=== PATIENT | female | born 1930 | race Caucasian/White ===

== ENCOUNTER 2016-09-11 05:05 | Emergency (ER) | payer MEDICARE, BC ==
[2005-02-19 17:27] VITALS: BP 143/71
[~2016-09-11] VITALS: Ht 172.7 cm; Wt 61.4 kg
[~2016-09-11 05:05] MED LIST: ALDACTONE 25MG25 M1 PO; ALDACTONE 25MG25 MG PO; ANTIVERT 12.512.5 MG PO; ANTIVERT 25MG25 MG PO; ASPIRIN 32325 MG/TA1 PO; ASPIRIN 81M81 MG/TA2 PO; BENADRYL PO; CALCIUM1 CAP PO; CALTRATE 600 +1 TAB PO; CENTRUM1 TAB PO; CEPHALEXIN500 M1 PO; CLOPIDOGREL PO; CORDARONE200 MG/TAB PO; COZAAR 25MG25 MG/TAB PO; DIAZIDE PO; DIOVAN80 M1 PO; DYAZIDE 25 MG-31 CAP PO; ELIQUIS 5MG PO; EXELON PAT4.6 MG/24 TD; EXELON13.3TDM; FISH OIL CONC1000 MG PO; FISH OIL500 MG PO; GRX VITAMIN E1000 IU TP; KLOR-CON 1010 MEQ PO; LEVAQUIN 5500 MG/TA1 PO; LEVOTHYROXINE PO; LIPITOR 10MG10 MG PO; MILK OF MAGNESI30 M1 PO; MULTAQ400 MG PO; MULTIPLE VITAMI1 CAP PO; MULTIPLE VITAMI1 TA1 PO; NEURONTIN100 MG/CAP; NORCO 325 MG-51 TAB PO; OSCAL 500 TAB500 MG PO; PEPCID COMPLETE1 CTB PO; POTASSIUM CH2 MEQ/ML PO; POTASSIUM CHLO10 ME2 PO; PROZAC 20MG20 MG PO; SYNTHROID0.088 MG/T PO; TESSALON P100 MG/CAP PO; TOPROL XL25 MG PO; TYLENOL 325MG325 MG PO; TYLENOL 500MG500 MG PO; VITAMIN C500 MG PO; ZOFRAN 4MG T4 MG/TAB PO
[2016-09-11 05:08] VITALS: TEMP 97.2
[2016-09-11] MEDS ORDERED: NORCO 325 MG-51 TAB PO (05:55)
[2016-09-11 06:15] VITALS: BP 167/68; PULSE 51
[2016-09-12] MEDS ORDERED: SYNTHROID0.075 MG/T PO (15:54)
[2016-09-12] MEDS ORDERED: ASPIRIN 81M81 MG/TA2 PO (15:55)
[2016-09-12] MEDS ORDERED: TOPROL XL 25MG25 MG PO (15:57)
[2016-09-12] MEDS ORDERED: ANTIVERT 12.512.5 MG PO (16:09)
== END 2016-09-11 06:15 | disposition home or self-care (01) ==
LOC: COL.ER 05:05
DX: S30.0XXA Contusion of lower back and pelvis, initial encounter (principal); I48.2 Chronic atrial fibrillation; W18.09XA Striking against other object with subsequent fall, initial encounter; I10 Essential (primary) hypertension

== ENCOUNTER 2016-09-12 15:05 | Emergency (ER) | payer MEDICARE, BC ==
[2005-02-19 17:27] VITALS: BP 143/71
[~2016-09-12] VITALS: Ht 170.2 cm; Wt 63.6 kg
[2016-09-12 15:09] VITALS: TEMP 97.8
[2016-09-12 15:49] LABS: BASO % 0.7 % (0.0-2.0); EOS % 0.7 % (0-4.0); GRAN # 4.2 (1.4-6.5); GRAN % 74.1 % (42.2-75.2); LYMPH # 0.7 (1.2-3.4); LYMPH % 11.8 % (20.0-51.0); MEAN CELL VOLUME 85 fl (80.0-100.0); MEAN CORPUSCULAR HGB CONC 32 g/dl (33.0-37.0); MEAN PLATELET VOLUME 9.7 fl (7.4-10.4); MONO # 0.7 (0.1-0.6); MONO % 12.3 % (1.7-9.3); PLATELET COUNT 152 K/mm3 (130-400); RED BLOOD COUNT 3.87 M/mm3 (4.10-5.30); REDCELL DISTRIBUTION WIDTH-CV 16.5 % (11.5-14.5); WHITE BLOOD COUNT 5.7 K/mm3 (4.8-10.8)
[2016-09-12 15:54] LABS: HEMATOCRIT 32.9 % (37.0-47.0); HEMOGLOBIN 10.6 g/dl (12.5-16.0); MEAN CORPUSCULAR HEMOGLOBIN 27 pg (27.0-31.0)
[2016-09-12] MEDS ORDERED: SYNTHROID0.075 MG/T PO (15:54)
[2016-09-12] MEDS ORDERED: ASPIRIN 81M81 MG/TA2 PO (15:55)
[2016-09-12] MEDS ORDERED: TOPROL XL 25MG25 MG PO (15:57)
[2016-09-12 16:02] LABS: ADJUSTED CALCIUM 9.8 mg/dL (8.4-10.2); ALBUMIN 3.5 gm/dL (3.5-5.0); C-REACTIVE PROTEIN 1.7 mg/dL (0.0-0.9); CALCIUM 9.4 mg/dL (8.4-10.2); CREATININE, serum 1.02 mg/dL (0.52-1.25); TOTAL PROTEIN 6.1 gm/dL (6.4-8.2)
[2016-09-12] MEDS ORDERED: ANTIVERT 12.512.5 MG PO (16:09)
[2016-09-12 16:13] LABS: PARTIAL THROMBOPLASTIN TIME 28.9 SECONDS (26.0-37.0)
[2016-09-12 16:14] LABS: INR 1.6 (0.8-3.0); PROTHROMBIN TIME 18.1 SECONDS (9.7-12.8)
[2016-09-12 17:49] LABS: PH 5 (5-8); URINE APPEARANCE Clear; URINE BACTERIA None Seen /hpf; URINE BILIRUBIN Negative (NEGATIVE); URINE BLOOD Negative (NEGATIVE); URINE COLOR Yellow; URINE GLUCOSE Negative (NEGATIVE); URINE KETONE 1+ (NEGATIVE); URINE RBC 0-2 /hpf; URINE UROBILINOGEN Negative (NEGATIVE)
[2016-09-12 18:21] VITALS: BP 169/66; PULSE 59
== END 2016-09-12 18:25 | disposition home or self-care (01) ==
LOC: COL.ER 15:05
PROVIDERS: Emergency Medicine
DX: S34.109A Unspecified injury to unspecified level of lumbar spinal cord, initial encounter (principal); W18.39XA Other fall on same level, initial encounter; Z91.81 History of falling; Y92.198 Other place in other specified residential institution as the place of occurrence of the external cause; I25.10 Atherosclerotic heart disease of native coronary artery without angina pectoris; I10 Essential (primary) hypertension; I48.91 Unspecified atrial fibrillation
CPT/HCPCS: J2270; J2405; J7030

== ENCOUNTER → 2016-09-22 | Outpatient (CLI) | payer MEDICARE, BC ==
[~2016-09-22] MED LIST changes: +ALMACONE 360 M360 ML PO; +AMOXICILLIN 50500 MG PO; +B-121000 MCG PO; +DEBROX OT; +DESYREL 50MG50 MG PO; +EXELON13.3TDM TD; +HALDOL .5M0.5 MG/TAB PO; +HALDOL 1MG T1 MG/TAB PO; +LEVAQUIN 750MG750 M1 PO; +MILK OF MA400 MG/52 PO; +NEURONTIN100 MG/CAP PO; +NORVASC 5MG5 MG/TAB PO; +PHENERGAN25 MG RC; +SEROQUEL 2525 MG/TAB PO; +SYNTHROID0.075 MG/T PO; +TOPROL XL 25MG25 MG PO
[2016-09-22 15:54] LABS: BASO # 0.1 (0.0-0.2); BASO % 0.8 % (0.0-2.0); EOS # 0.1 (0.0-0.7); EOS % 1.2 % (0-4.0); GRAN # 4.2 (1.4-6.5); GRAN % 70.9 % (42.2-75.2); HEMATOCRIT 37.6 % (37.0-47.0); HEMOGLOBIN 11.9 g/dl (12.5-16.0); LYMPH # 1.1 (1.2-3.4); LYMPH % 18.5 % (20.0-51.0); MEAN CELL VOLUME 87 fl (80.0-100.0); MEAN CORPUSCULAR HEMOGLOBIN 28 pg (27.0-31.0); MEAN CORPUSCULAR HGB CONC 32 g/dl (33.0-37.0); MEAN PLATELET VOLUME 9.9 fl (7.4-10.4); MONO # 0.5 (0.1-0.6); MONO % 8.3 % (1.7-9.3); PLATELET COUNT 241 K/mm3 (130-400); RED BLOOD COUNT 4.31 M/mm3 (4.10-5.30); REDCELL DISTRIBUTION WIDTH-CV 17.5 % (11.5-14.5); WHITE BLOOD COUNT 5.9 K/mm3 (4.8-10.8)
[2016-09-22 16:23] LABS: CALCIUM 9.7 mg/dL (8.4-10.2); CREATININE, serum 1.13 mg/dL (0.52-1.25); POTASSIUM 4.7 mmol/L (3.4-5.0)
== END ==
LOC: ZLAB.STJ 15:02
PROVIDERS: Internal Medicine Nephrology
DX: N18.2 Chronic kidney disease, stage 2 (mild) (principal)

== ENCOUNTER 2016-10-29 08:34 | Emergency (ER) | payer MEDICARE, BC ==
[2005-02-19 17:27] VITALS: BP 143/71
[~2016-10-29] VITALS: Ht 170.2 cm; Wt 59.1 kg
[~2016-10-29 08:34] MED LIST changes: -ALMACONE 360 M360 ML PO; -AMOXICILLIN 50500 MG PO; -B-121000 MCG PO; -DEBROX OT; -DESYREL 50MG50 MG PO; -EXELON13.3TDM TD; -HALDOL .5M0.5 MG/TAB PO; -HALDOL 1MG T1 MG/TAB PO; -LEVAQUIN 750MG750 M1 PO; -MILK OF MA400 MG/52 PO; -NEURONTIN100 MG/CAP PO; -NORVASC 5MG5 MG/TAB PO; -PHENERGAN25 MG RC; -SEROQUEL 2525 MG/TAB PO
[2016-10-29 08:38] VITALS: TEMP 97.7
[2016-10-29] MEDS ORDERED: EXELON13.3TDM TD (09:03)
[2016-10-29] MEDS ORDERED: NEURONTIN100 MG/CAP PO ×2 (09:04→09:10)
[2016-10-29] MEDS ORDERED: TYLENOL 325MG325 MG PO ×2 (09:08→09:10)
[2016-10-29] MEDS ORDERED: MILK OF MA400 MG/52 PO (09:11)
[2016-10-29] MEDS ORDERED: AMOXICILLIN 50500 MG PO (09:12)
[2016-10-29] MEDS ORDERED: HALDOL 1MG T1 MG/TAB PO (09:12)
[2016-10-29 10:13] LABS: BASO % 0.6 % (0.0-2.0); EOS % 0.4 % (0-4.0); GRAN # 5.2 (1.4-6.5); GRAN % 76.2 % (42.2-75.2); HEMATOCRIT 44.6 % (37.0-47.0); HEMOGLOBIN 14.3 g/dl (12.5-16.0); LYMPH % 14.8 % (20.0-51.0); MEAN CELL VOLUME 85 fl (80.0-100.0); MEAN CORPUSCULAR HEMOGLOBIN 27 pg (27.0-31.0); MEAN CORPUSCULAR HGB CONC 32 g/dl (33.0-37.0); MEAN PLATELET VOLUME 9.8 fl (7.4-10.4); MONO # 0.5 (0.1-0.6); MONO % 7.9 % (1.7-9.3); PLATELET COUNT 159 K/mm3 (130-400); RED BLOOD COUNT 5.23 M/mm3 (4.10-5.30); REDCELL DISTRIBUTION WIDTH-CV 16.3 % (11.5-14.5); WHITE BLOOD COUNT 6.8 K/mm3 (4.8-10.8)
[2016-10-29 10:22] LABS: ADJUSTED CALCIUM 9.5 mg/dL (8.4-10.2); ALBUMIN 4.2 gm/dL (3.5-5.0); BILIRUBIN,TOTAL 1.4 mg/dL (0.0-1.0); CALCIUM 9.7 mg/dL (8.4-10.2); CREATININE, serum 0.81 mg/dL (0.52-1.25); POTASSIUM 3.6 mmol/L (3.4-5.0); TOTAL PROTEIN 7.2 gm/dL (6.4-8.2)
[2016-10-29 14:03] VITALS: BP 109/53; PULSE 53
== END 2016-10-29 14:03 | disposition home or self-care (01) ==
LOC: COL.ER 08:34
PROVIDERS: Physician Assistant Medical
DX: R51 Headache (principal); I10 Essential (primary) hypertension; W19.XXXA Unspecified fall, initial encounter; Y92.129 Unspecified place in nursing home as the place of occurrence of the external cause; F03.90 Unspecified dementia, unspecified severity, without behavioral disturbance, psychotic disturbance, mood disturbance, and anxiety; Z91.81 History of falling; R00.1 Bradycardia, unspecified
CPT/HCPCS: J2405; J3010

== ENCOUNTER 2016-11-03 14:34 | Inpatient (IN) | payer MEDICARE, BC ==
[~2016-11-03] VITALS: Ht 172.7 cm; Wt 54.0 kg
[~2016-11-03 14:34] MED LIST changes: +AMOXICILLIN 50500 MG PO; +EXELON13.3TDM TD; +HALDOL 1MG T1 MG/TAB PO; +MILK OF MA400 MG/52 PO; +NEURONTIN100 MG/CAP PO
[2016-11-03 16:18] LABS: BASO % 0.5 % (0.0-2.0); EOS % 0.5 % (0-4.0); GRAN # 4.1 (1.4-6.5); GRAN % 71.4 % (42.2-75.2); HEMATOCRIT 39.9 % (37.0-47.0); HEMOGLOBIN 12.7 g/dl (12.5-16.0); LYMPH % 17.5 % (20.0-51.0); MEAN CELL VOLUME 87 fl (80.0-100.0); MEAN CORPUSCULAR HEMOGLOBIN 28 pg (27.0-31.0); MEAN CORPUSCULAR HGB CONC 32 g/dl (33.0-37.0); MEAN PLATELET VOLUME 9.9 fl (7.4-10.4); MONO # 0.6 (0.1-0.6); MONO % 9.9 % (1.7-9.3); PLATELET COUNT 162 K/mm3 (130-400); REDCELL DISTRIBUTION WIDTH-CV 16.7 % (11.5-14.5); WHITE BLOOD COUNT 5.7 K/mm3 (4.8-10.8)
[2016-11-03 16:31] LABS: ADJUSTED CALCIUM 9.9 mg/dL (8.4-10.2); ALANINE AMINOTRANSFERASE 53 U/L (9-52); ALBUMIN 3.4 gm/dL (3.5-5.0); ALKALINE PHOSPHATASE 74 U/L (50-136); ANION GAP 9 mmol/L (7-16); BILIRUBIN,TOTAL 0.8 mg/dL (0.0-1.0); BLOOD UREA NITROGEN 22 mg/dL (7-17); CALCIUM 9.4 mg/dL (8.4-10.2); CARBON DIOXIDE 31 mmol/L (22-30); CHLORIDE 98 mmol/L (98-107); CREATININE, serum 1.17 mg/dL (0.52-1.25); GLUCOSE 115 mg/dL (74-106); POTASSIUM 3.4 mmol/L (3.4-5.0); SODIUM 138 mmol/L (137-145)
[2016-11-03 16:46] LABS: ACETAMINOPHEN < 10 ug/mL (10-30); SALICYLATE < 1.0 mg/dL
[2016-11-03 17:26] LABS: PH 5 (5-8); SQUAMOUS EPITHELIAL 0-2 /hpf; URINE APPEARANCE Turbid; URINE BACTERIA None Seen /hpf; URINE BILIRUBIN Negative (NEGATIVE); URINE BLOOD Negative (NEGATIVE); URINE COLOR Amber; URINE GLUCOSE Negative (NEGATIVE); URINE KETONE Negative (NEGATIVE); URINE RBC 0-2 /hpf
[2016-11-03 17:32] LABS: AMPHETAMINE URINE NEGATIVE; BARBITURATES URINE NEGATIVE; BENZODIAZEPINES URINE POSITIVE; BUPRENORPHINE URINE NEGATIVE; METHADONE URINE NEGATIVE; OPIATES URINE POSITIVE; OXYCODONE URINE NEGATIVE; PHENCYCLIDINE URINE NEGATIVE; PROPOXYPHENE URINE NEGATIVE; THC CANNABINOIDS URINE NEGATIVE
[2016-11-03] MEDS ORDERED: LIPITOR 10MG10 MG PO (17:53)
[2016-11-03] MEDS ORDERED: HALDOL 1MG T1 MG/TAB PO (18:04)
[2016-11-03 20:43] VITALS: BP 146/45; PULSE 50; TEMP 98.8
[2016-11-03 23:56] VITALS: BP 154/79; PULSE 50; TEMP 98.4
[2016-11-04 08:30] VITALS: BP 191/67; PULSE 54; TEMP 98.4
[2016-11-04] MEDS ORDERED: MILK OF MA400 MG/52 PO (12:01)
[2016-11-04] MEDS ORDERED: HALDOL .5M0.5 MG/TAB PO (12:07)
[2016-11-04 12:34] VITALS: BP 170/47; PULSE 50; TEMP 98.1
[2016-11-04 16:16] VITALS: BP 145/75; PULSE 56; TEMP 97.7
[2016-11-04 23:59] VITALS: BP 162/55; PULSE 58; TEMP 98.1
[2016-11-05 08:00] VITALS: BP 191/57; PULSE 50; TEMP 98.4
[2016-11-05 11:11] VITALS: BP 113/55; PULSE 48; TEMP 97.6
[2016-11-05] MEDS ORDERED: NORCO 325 MG-51 TAB PO (12:51)
[2016-11-05] MEDS ORDERED: DESYREL 50MG50 MG PO (12:51)
[2016-11-05] MEDS ORDERED: SEROQUEL 2525 MG/TAB PO ×3 (12:52→16:55)
[2016-11-05] MEDS ORDERED: NORVASC 5MG5 MG/TAB PO (12:56)
[2016-11-05 15:24] VITALS: BP 126/44; PULSE 56; TEMP 97.9
[2016-11-05 19:01] VITALS: BP 126/44; PULSE 56; TEMP 97.9
== END 2016-11-05 20:37 | DRG 884 ==
LOC: COL.ER 14:34 → MEDICAL 18:51
PROVIDERS: Nurse Practitioner
DX: F01.51 Vascular dementia, unspecified severity, with behavioral disturbance (principal); I10 Essential (primary) hypertension; I48.91 Unspecified atrial fibrillation; E03.9 Hypothyroidism, unspecified; E78.5 Hyperlipidemia, unspecified; R53.81 Other malaise; Z86.73 Personal history of transient ischemic attack (TIA), and cerebral infarction without residual deficits
CPT/HCPCS: 90791-AI; 99222-AI; 99233-AI; G0378; J1650

== ENCOUNTER → 2017-01-07 | Outpatient (CLI) | payer MEDICARE, BC ==
[~2017-01-07] MED LIST changes: +ALMACONE 360 M360 ML PO; +B-121000 MCG PO; +DEBROX OT; +DESYREL 50MG50 MG PO; +HALDOL .5M0.5 MG/TAB PO; +LEVAQUIN 750MG750 M1 PO; +NORVASC 5MG5 MG/TAB PO; +PHENERGAN25 MG RC; +SEROQUEL 2525 MG/TAB PO
== END ==
LOC: ZLAB.STJ 14:26
DX: E78.2 Mixed hyperlipidemia (principal); Z86.73 Personal history of transient ischemic attack (TIA), and cerebral infarction without residual deficits; N18.2 Chronic kidney disease, stage 2 (mild)

== ENCOUNTER → 2017-01-10 | Outpatient (CLI) | payer MEDICARE, BC ==
[2017-01-10 12:44] LABS: ADJUSTED CALCIUM 9.9 mg/dL (8.4-10.2); ALBUMIN 2.7 gm/dL (3.5-5.0); BILIRUBIN,TOTAL 0.5 mg/dL (0.0-1.0); CALCIUM 8.9 mg/dL (8.4-10.2); CREATININE, serum 0.97 mg/dL (0.52-1.25); POTASSIUM 4.1 mmol/L (3.4-5.0); TOTAL PROTEIN 4.9 gm/dL (6.4-8.2)
== END ==
LOC: ZLAB.STJ 10:09
PROVIDERS: Family Medicine
DX: R48.9 Unspecified symbolic dysfunctions (principal); N18.2 Chronic kidney disease, stage 2 (mild)

== ENCOUNTER → 2017-01-10 | Outpatient (CLI) | payer MEDICARE, BC ==
[2017-01-10 16:17] LABS: PH 5 (5-8); SQUAMOUS EPITHELIAL 0-2 /hpf; URINE APPEARANCE Hazy; URINE BACTERIA None Seen /hpf; URINE BILIRUBIN Negative (NEGATIVE); URINE BLOOD Negative (NEGATIVE); URINE COLOR Yellow; URINE GLUCOSE Negative (NEGATIVE); URINE KETONE Negative (NEGATIVE); URINE UROBILINOGEN Negative (NEGATIVE)
== END ==
LOC: ZLAB.STJ 15:11
PROVIDERS: Family Medicine
DX: E78.5 Hyperlipidemia, unspecified (principal)

== ENCOUNTER 2017-02-12 00:11 | Emergency (ER) | payer MEDICARE, BC ==
[2005-02-19 17:27] VITALS: BP 143/71
[~2017-02-12] VITALS: Ht 152.4 cm; Wt 54.5 kg
[~2017-02-12 00:11] MED LIST changes: -ALMACONE 360 M360 ML PO; -B-121000 MCG PO; -DEBROX OT; -LEVAQUIN 750MG750 M1 PO; -PHENERGAN25 MG RC
[2017-02-12 00:13] VITALS: TEMP 97.3
[2017-02-12] MEDS ORDERED: B-121000 MCG PO (00:37)
[2017-02-12] MEDS ORDERED: DEBROX OT (00:40)
[2017-02-12 01:02] LABS: BASO % 0.2 % (0.0-2.0); EOS % 0.1 % (0-4.0); GRAN # 12.7 (1.4-6.5); GRAN % 85.7 % (42.2-75.2); HEMATOCRIT 38.1 % (37.0-47.0); HEMOGLOBIN 12.5 g/dl (12.5-16.0); LYMPH # 0.7 (1.2-3.4); LYMPH % 4.5 % (20.0-51.0); MEAN CELL VOLUME 86 fl (80.0-100.0); MEAN CORPUSCULAR HEMOGLOBIN 28 pg (27.0-31.0); MEAN CORPUSCULAR HGB CONC 33 g/dl (33.0-37.0); MEAN PLATELET VOLUME 10.5 fl (7.4-10.4); MONO # 1.3 (0.1-0.6); MONO % 8.9 % (1.7-9.3); PLATELET COUNT 143 K/mm3 (130-400); RED BLOOD COUNT 4.45 M/mm3 (4.10-5.30); WHITE BLOOD COUNT 14.8 K/mm3 (4.8-10.8)
[2017-02-12 01:08] LABS: ADJUSTED CALCIUM 9.6 mg/dL (8.4-10.2); ALANINE AMINOTRANSFERASE 30 U/L (9-52); ALBUMIN 3.5 gm/dL (3.5-5.0); ALKALINE PHOSPHATASE 102 U/L (50-136); ANION GAP 11 mmol/L (7-16); BILIRUBIN,TOTAL 1.3 mg/dL (0.0-1.0); BLOOD UREA NITROGEN 20 mg/dL (7-17); CALCIUM 9.2 mg/dL (8.4-10.2); CARBON DIOXIDE 25 mmol/L (22-30); CHLORIDE 98 mmol/L (98-107); CREATININE, serum 0.94 mg/dL (0.52-1.25); GLUCOSE 110 mg/dL (74-106); POTASSIUM 3.9 mmol/L (3.4-5.0); SODIUM 134 mmol/L (137-145); TOTAL PROTEIN 6.1 gm/dL (6.4-8.2)
[2017-02-12 01:20] LABS: TROPONIN-I < 0.012 ng/mL (0.000-0.034)
[2017-02-12 01:21] LABS: PH 6 (5-8); SQUAMOUS EPITHELIAL 0-2 /hpf; URINE APPEARANCE Hazy; URINE BACTERIA None Seen /hpf; URINE BILIRUBIN Negative (NEGATIVE); URINE BLOOD Negative (NEGATIVE); URINE COLOR Yellow; URINE GLUCOSE Negative (NEGATIVE); URINE KETONE Trace (NEGATIVE); URINE RBC 0-2 /hpf; URINE UROBILINOGEN Negative (NEGATIVE)
[2017-02-12] MEDS ORDERED: SEROQUEL 2525 MG/TAB PO (01:23)
[2017-02-12] MEDS ORDERED: ALMACONE 360 M360 ML PO (01:24)
[2017-02-12] MEDS ORDERED: PHENERGAN25 MG RC (01:25)
[2017-02-12] MEDS ORDERED: LEVAQUIN 750MG750 M1 PO (03:10)
[2017-02-12 03:40] VITALS: BP 116/45; PULSE 65
== END 2017-02-12 03:43 | disposition home or self-care (01) ==
LOC: COL.ER 00:11
PROVIDERS: Emergency Medicine
DX: I95.9 Hypotension, unspecified (principal); R91.8 Other nonspecific abnormal finding of lung field; I10 Essential (primary) hypertension; I48.91 Unspecified atrial fibrillation; Z86.73 Personal history of transient ischemic attack (TIA), and cerebral infarction without residual deficits; F03.91 Unspecified dementia, unspecified severity, with behavioral disturbance; R82.4 Acetonuria
CPT/HCPCS: J7030

== ENCOUNTER → 2017-02-17 | Outpatient (CLI) | payer MEDICARE, BC ==
[~2017-02-17] MED LIST changes: +ALMACONE 360 M360 ML PO; +B-121000 MCG PO; +DEBROX OT; +LEVAQUIN 750MG750 M1 PO; +PHENERGAN25 MG RC
[2017-02-17 11:23] LABS: BASO % 0.7 % (0.0-2.0); EOS # 0.1 (0.0-0.7); EOS % 1.3 % (0-4.0); GRAN # 4.2 (1.4-6.5); GRAN % 68.6 % (42.2-75.2); LYMPH % 16.7 % (20.0-51.0); MEAN CELL VOLUME 86 fl (80.0-100.0); MEAN CORPUSCULAR HEMOGLOBIN 28 pg (27.0-31.0); MEAN CORPUSCULAR HGB CONC 33 g/dl (33.0-37.0); MEAN PLATELET VOLUME 10.3 fl (7.4-10.4); MONO # 0.7 (0.1-0.6); PLATELET COUNT 184 K/mm3 (130-400); RED BLOOD COUNT 4.66 M/mm3 (4.10-5.30); REDCELL DISTRIBUTION WIDTH-CV 15.9 % (11.5-14.5); WHITE BLOOD COUNT 6.1 K/mm3 (4.8-10.8)
== END ==
LOC: ZLAB.STJ 10:07
PROVIDERS: Family Medicine
DX: R41.3 Other amnesia (principal)

== ENCOUNTER → 2017-07-12 | Outpatient (CLI) | payer MEDICARE, BC ==
[2017-07-12 10:08] LABS: CHOLESTEROL RISK RATIO 1.9
== END ==
LOC: ZLAB.STJ 09:42
PROVIDERS: Nurse Practitioner
DX: E78.5 Hyperlipidemia, unspecified (principal)

== ENCOUNTER 2017-07-25 13:38 | Emergency (ER) | payer MEDICARE, BC ==
[2005-02-19 17:27] VITALS: BP 143/71
[~2017-07-25] VITALS: Ht 170.2 cm; Wt 61.4 kg
[2017-07-25 13:44] VITALS: TEMP 98
[2017-07-25 14:34] LABS: COLLECTION METHOD CLEAN CATCH
[2017-07-25 14:34] LABS: BASO % 0.5 % (0.0-2.0); EOS % 0.7 % (0-4.0); GRAN # 4.2 (1.4-6.5); GRAN % 73.5 % (42.2-75.2); HEMATOCRIT 38.9 % (37.0-47.0); HEMOGLOBIN 12.8 g/dl (12.5-16.0); LYMPH % 17.5 % (20.0-51.0); MEAN CELL VOLUME 90 fl (80.0-100.0); MEAN CORPUSCULAR HEMOGLOBIN 30 pg (27.0-31.0); MEAN CORPUSCULAR HGB CONC 33 g/dl (33.0-37.0); MEAN PLATELET VOLUME 9.5 fl (7.4-10.4); MONO # 0.4 (0.1-0.6); MONO % 7.5 % (1.7-9.3); PLATELET COUNT 155 K/mm3 (130-400); RED BLOOD COUNT 4.34 M/mm3 (4.10-5.30); WHITE BLOOD COUNT 5.7 K/mm3 (4.8-10.8)
[2017-07-25 14:35] LABS: PROTHROMBIN TIME 11.2 SECONDS (9.7-12.8)
[2017-07-25 14:38] LABS: PARTIAL THROMBOPLASTIN TIME 29.6 SECONDS (26.0-37.0)
[2017-07-25 14:40] LABS: ADJUSTED CALCIUM 9.8 mg/dL (8.4-10.2); ALANINE AMINOTRANSFERASE 26 U/L (9-52); ALBUMIN 3.7 gm/dL (3.5-5.0); ALKALINE PHOSPHATASE 110 U/L (50-136); ANION GAP 7 mmol/L (7-16); BILIRUBIN,TOTAL 0.8 mg/dL (0.0-1.0); BLOOD UREA NITROGEN 20 mg/dL (7-17); CALCIUM 9.6 mg/dL (8.4-10.2); CARBON DIOXIDE 25 mmol/L (22-30); CHLORIDE 104 mmol/L (98-107); CREATININE, serum 0.88 mg/dL (0.52-1.25); GLUCOSE 92 mg/dL (74-106); MAGNESIUM 1.5 mg/dL (1.6-2.3); POTASSIUM 3.6 mmol/L (3.4-5.0); SODIUM 136 mmol/L (137-145); TOTAL PROTEIN 6.3 gm/dL (6.4-8.2)
[2017-07-25 14:44] LABS: ACETAMINOPHEN < 10 ug/mL (10-30); ALCOHOL(ethanol),MEDICAL < 10 mg/dL; SALICYLATE < 1.0 mg/dL
[2017-07-25 14:56] LABS: MUCOUS Present /lpf; PH 6 (5-8); URINE APPEARANCE Turbid; URINE BACTERIA Many /hpf; URINE BILIRUBIN Negative (NEGATIVE); URINE BLOOD 2+ (NEGATIVE); URINE COLOR Amber; URINE GLUCOSE Negative (NEGATIVE); URINE KETONE Trace (NEGATIVE); URINE LEUKOCYTE ESTERASE 2+ (NEGATIVE); URINE PROTEIN(semi-quant) 1+ (NEGATIVE); URINE RBC >50 /hpf; URINE UROBILINOGEN >=4.0 mg/dL (NEGATIVE); URINE WBC >50 /hpf
[2017-07-25 15:01] LABS: AMPHETAMINE URINE NEGATIVE; BARBITURATES URINE NEGATIVE; BENZODIAZEPINES URINE POSITIVE; BUPRENORPHINE URINE NEGATIVE; METHADONE URINE NEGATIVE; OPIATES URINE NEGATIVE; OXYCODONE URINE NEGATIVE; PHENCYCLIDINE URINE NEGATIVE; PROPOXYPHENE URINE NEGATIVE; THC CANNABINOIDS URINE NEGATIVE; TRICYCLIC ANTIDEPRESS URINE POSITIVE
[2017-07-25 22:50] VITALS: BP 181/94; PULSE 71
== END 2017-07-25 23:00 ==
LOC: COL.ER 13:38
PROVIDERS: Emergency Medicine
DX: F03.91 Unspecified dementia, unspecified severity, with behavioral disturbance (principal); N39.0 Urinary tract infection, site not specified; I10 Essential (primary) hypertension; I48.91 Unspecified atrial fibrillation; Z79.82 Long term (current) use of aspirin

== ENCOUNTER → 2017-08-13 | Outpatient (CLI) | payer MEDICARE, BC ==
[2017-08-13 08:10] LABS: COLLECTION METHOD CLEAN CATCH
[2017-08-13 08:18] LABS: MUCOUS Present /lpf; PH 7 (5-8); SQUAMOUS EPITHELIAL 0-2 /hpf; URINE APPEARANCE Clear; URINE BACTERIA None Seen /hpf; URINE BILIRUBIN Negative (NEGATIVE); URINE BLOOD Negative (NEGATIVE); URINE COLOR Straw; URINE GLUCOSE Negative (NEGATIVE); URINE KETONE Negative (NEGATIVE); URINE LEUKOCYTE ESTERASE Negative (NEGATIVE); URINE PROTEIN(semi-quant) Negative (NEGATIVE); URINE RBC 0-2 /hpf; URINE UROBILINOGEN Negative (NEGATIVE)
== END ==
LOC: ZCOL.LAB 05:00
PROVIDERS: Internal Medicine
DX: N39.0 Urinary tract infection, site not specified (principal)

== ENCOUNTER 2017-08-25 15:44 | Emergency (ER) | payer MEDICARE, BC ==
[2005-02-19 17:27] VITALS: BP 143/71
[~2017-08-25] VITALS: Ht 170.2 cm; Wt 59.1 kg
[2017-08-25 15:46] VITALS: TEMP 98.1
[2017-08-25 16:29] LABS: BASO % 0.6 % (0.0-2.0); EOS # 0.1 (0.0-0.7); EOS % 1.4 % (0-4.0); GRAN # 2.9 (1.4-6.5); GRAN % 58.9 % (42.2-75.2); HEMATOCRIT 40.1 % (37.0-47.0); HEMOGLOBIN 13.1 g/dl (12.5-16.0); LYMPH # 1.5 (1.2-3.4); LYMPH % 29.1 % (20.0-51.0); MEAN CELL VOLUME 91 fl (80.0-100.0); MEAN CORPUSCULAR HEMOGLOBIN 30 pg (27.0-31.0); MEAN CORPUSCULAR HGB CONC 33 g/dl (33.0-37.0); MEAN PLATELET VOLUME 9.2 fl (7.4-10.4); MONO # 0.5 (0.1-0.6); MONO % 9.8 % (1.7-9.3); PLATELET COUNT 143 K/mm3 (130-400); RED BLOOD COUNT 4.41 M/mm3 (4.10-5.30)
[2017-08-25 16:32] LABS: COLLECTION METHOD CATHETER
[2017-08-25 16:37] LABS: MUCOUS Present /lpf; PH 5 (5-8); URINE APPEARANCE Clear; URINE BACTERIA None Seen /hpf; URINE BILIRUBIN Negative (NEGATIVE); URINE BLOOD Negative (NEGATIVE); URINE COLOR Yellow; URINE GLUCOSE Negative (NEGATIVE); URINE KETONE Negative (NEGATIVE); URINE LEUKOCYTE ESTERASE Negative (NEGATIVE); URINE PROTEIN(semi-quant) Negative (NEGATIVE); URINE RBC 0-2 /hpf
[2017-08-25] MEDS ORDERED: GENTLE LAXATIVE5 MG PO (16:37)
[2017-08-25] MEDS ORDERED: EXELON13.3TDM (16:38)
[2017-08-25] MEDS ORDERED: DEBROX OT (16:39)
[2017-08-25] MEDS ORDERED: LIPITOR 10MG10 MG PO (16:39)
[2017-08-25] MEDS ORDERED: MILK OF MA400 MG/52 PO (16:41)
[2017-08-25 16:42] LABS: ADJUSTED CALCIUM 9.8 mg/dL (8.4-10.2); ALANINE AMINOTRANSFERASE 30 U/L (9-52); ALBUMIN 3.6 gm/dL (3.5-5.0); ALKALINE PHOSPHATASE 96 U/L (50-136); ANION GAP 6 mmol/L (7-16); BILIRUBIN,TOTAL 0.6 mg/dL (0.0-1.0); BLOOD UREA NITROGEN 17 mg/dL (7-17); CALCIUM 9.5 mg/dL (8.4-10.2); CARBON DIOXIDE 27 mmol/L (22-30); CHLORIDE 104 mmol/L (98-107); CREATININE, serum 0.85 mg/dL (0.52-1.25); GLUCOSE 114 mg/dL (74-106); POTASSIUM 3.8 mmol/L (3.4-5.0); SODIUM 136 mmol/L (137-145); TOTAL PROTEIN 6.2 gm/dL (6.4-8.2)
[2017-08-25] MEDS ORDERED: LEVOXYL0.075 MG PO (16:42)
[2017-08-25] MEDS ORDERED: ASPIRIN 81M81 MG/TA2 PO (16:43)
[2017-08-25] MEDS ORDERED: NEURONTIN100 MG/CAP PO (16:44)
[2017-08-25 16:45] LABS: C-REACTIVE PROTEIN < 0.5 mg/dL (0.0-0.9)
[2017-08-25] MEDS ORDERED: IMODIUM 2MG CAPS2 MG PO (16:46)
[2017-08-25] MEDS ORDERED: DESYREL 50MG50 MG PO (16:47)
[2017-08-25] MEDS ORDERED: B-121000 MCG PO (16:49)
[2017-08-25 16:50] LABS: TROPONIN-I < 0.012 ng/mL (0.000-0.034)
[2017-08-25] MEDS ORDERED: HALDOL .5M0.5 MG/TAB PO (16:50)
[2017-08-25] MEDS ORDERED: HALDOL 1MG T1 MG/TAB PO (16:50)
[2017-08-25] MEDS ORDERED: NORCO 325 MG-51 TAB PO ×2 (16:51→16:52)
[2017-08-25] MEDS ORDERED: CYMBALTA 30MG30 MG PO (16:52)
[2017-08-25 17:20] VITALS: BP 180/85; PULSE 65
[2017-08-27] MEDS ORDERED: CEPHALEXIN500 M1 PO (19:38)
== END 2017-08-25 17:20 | disposition home or self-care (01) ==
LOC: COL.ER 15:44
PROVIDERS: Emergency Medicine
DX: F03.90 Unspecified dementia, unspecified severity, without behavioral disturbance, psychotic disturbance, mood disturbance, and anxiety (principal); R41.82 Altered mental status, unspecified; I10 Essential (primary) hypertension; Z79.82 Long term (current) use of aspirin

== ENCOUNTER 2017-10-02 10:31 | Emergency (ER) | payer MEDICARE, BC ==
[2005-02-19 17:27] VITALS: BP 143/71
[~2017-10-02] VITALS: Ht 170.2 cm; Wt 56.8 kg
[~2017-10-02 10:31] MED LIST changes: +CYMBALTA 30MG30 MG PO; +GENTLE LAXATIVE5 MG PO; +IMODIUM 2MG CAPS2 MG PO; +LEVOXYL0.075 MG PO
[2017-10-02 10:39] VITALS: TEMP 97.8
[2017-10-02 11:02] LABS: BASO % 0.5 % (0.0-2.0); EOS % 0.5 % (0-4.0); GRAN # 4.6 (1.4-6.5); GRAN % 71.5 % (42.2-75.2); HEMATOCRIT 39.8 % (37.0-47.0); HEMOGLOBIN 13.3 g/dl (12.5-16.0); LYMPH # 1.2 (1.2-3.4); LYMPH % 19.2 % (20.0-51.0); MEAN CELL VOLUME 91 fl (80.0-100.0); MEAN CORPUSCULAR HEMOGLOBIN 30 pg (27.0-31.0); MEAN CORPUSCULAR HGB CONC 33 g/dl (33.0-37.0); MEAN PLATELET VOLUME 9.5 fl (7.4-10.4); MONO # 0.5 (0.1-0.6); MONO % 8.1 % (1.7-9.3); PLATELET COUNT 158 K/mm3 (130-400); RED BLOOD COUNT 4.39 M/mm3 (4.10-5.30); REDCELL DISTRIBUTION WIDTH-CV 13.7 % (11.5-14.5)
[2017-10-02 11:05] LABS: PROTHROMBIN TIME 11.6 SECONDS (9.7-12.8)
[2017-10-02 11:10] LABS: ALANINE AMINOTRANSFERASE 22 U/L (9-52); ALBUMIN 3.5 gm/dL (3.5-5.0); ALKALINE PHOSPHATASE 84 U/L (50-136); ANION GAP 7 mmol/L (7-16); AST,SGOT 26 U/L (15-37); BILIRUBIN,TOTAL 0.5 mg/dL (0.0-1.0); BLOOD UREA NITROGEN 18 mg/dL (7-17); CALCIUM 9.5 mg/dL (8.4-10.2); CARBON DIOXIDE 28 mmol/L (22-30); CHLORIDE 102 mmol/L (98-107); CREATININE, serum 0.94 mg/dL (0.52-1.25); GLUCOSE 135 mg/dL (74-106); POTASSIUM 3.7 mmol/L (3.4-5.0); SODIUM 137 mmol/L (137-145)
[2017-10-02 11:12] LABS: C-REACTIVE PROTEIN < 0.5 mg/dL (0.0-0.9)
[2017-10-02 11:30] LABS: COLLECTION METHOD CATHETER
[2017-10-02] MEDS ORDERED: DEBROX OT (11:32)
[2017-10-02 11:40] LABS: MUCOUS Present /lpf; PH 5 (5-8); SQUAMOUS EPITHELIAL 0-2 /hpf; URINE APPEARANCE Clear; URINE BACTERIA None Seen /hpf; URINE BILIRUBIN Negative (NEGATIVE); URINE BLOOD Negative (NEGATIVE); URINE COLOR Yellow; URINE GLUCOSE Negative (NEGATIVE); URINE KETONE Negative (NEGATIVE); URINE LEUKOCYTE ESTERASE Negative (NEGATIVE); URINE NITRATE Negative (NEGATIVE); URINE PROTEIN(semi-quant) Negative (NEGATIVE); URINE RBC 0-2 /hpf; URINE UROBILINOGEN >=4.0 mg/dL (NEGATIVE)
[2017-10-02 13:46] VITALS: BP 164/84; PULSE 89
== END 2017-10-02 13:47 | disposition home or self-care (01) ==
LOC: COL.ER 10:31
PROVIDERS: Family Medicine
DX: R53.1 Weakness (principal); I48.91 Unspecified atrial fibrillation; F03.90 Unspecified dementia, unspecified severity, without behavioral disturbance, psychotic disturbance, mood disturbance, and anxiety; Z79.82 Long term (current) use of aspirin

== ENCOUNTER → 2018-04-01 | Outpatient (CLI) | payer MEDICARE, BC ==
[2018-04-01 04:20] LABS: COLLECTION METHOD CATHETER
[2018-04-01 04:50] LABS: MUCOUS Present /lpf; PH 6 (5-8); SQUAMOUS EPITHELIAL None Seen /hpf; URINE APPEARANCE Hazy; URINE BACTERIA Moderate /hpf; URINE BILIRUBIN Negative (NEGATIVE); URINE BLOOD Negative (NEGATIVE); URINE CALCIUM OXALATE CRYSTAL Present /hpf; URINE COLOR Yellow; URINE GLUCOSE Negative (NEGATIVE); URINE KETONE Negative (NEGATIVE); URINE LEUKOCYTE ESTERASE Negative (NEGATIVE); URINE NITRATE Positive (NEGATIVE); URINE PROTEIN(semi-quant) Negative (NEGATIVE); URINE RBC 0-2 /hpf; URINE UROBILINOGEN >=4.0 mg/dL (NEGATIVE); URINE WBC 0-2 /hpf
== END ==
LOC: ZCOL.LAB 02:00
PROVIDERS: Internal Medicine
DX: N39.0 Urinary tract infection, site not specified (principal)